=== PATIENT | female | born 1950 | race Caucasian/White ===

== ENCOUNTER 2017-11-11 20:36 | Observation (INO) ==
--- NOTE | 2017-11-11 21:43 | ED ---
HPI General Chief complaint: Weakness Stated complaint: Weakness Time Seen by Provider: 11/11/17 21:30 Source: patient and EMS Mode of arrival: EMS Limitations: no limitations History of Present Illness HPI Narrative: 67-year-old female presents to the emergency department from local urgent care by EMS for evaluation of weakness and reported heart rate of 170 noted by pulse oximetry during clinic triage. Paramedics transported patient in sinus rhythm sinus tachycardia with rate of 104 and no acute injury pattern EMS EKG. Patient here reports no chest pain no shortness of breath. Patient does report feeling some palpitations and weakness after eating some cheese its and drinking the beverage. Patient states shortly thereafter felt lightheaded and decided to be seen in the urgent care. Patient states she has history of hypertension and is prescribed losartan. Patient states she recently moved here from [place] and in July because of an abnormality on her EKG was sent to a public administration teacher by her primary care provider who did an extensive workup with a negative treadmill. Patient denies any chest pain shortness of breath referred neck jaw back shoulder arm pain. Patient denies abdominal pain. Patient states she has indigestion and feels like her stomach is gurgling and increased repetitive belching. No nausea or vomiting. No diaphoresis. No nursing. No reported upper or lower extremity numbness tingling or weakness. Patient has not yet established with a primary care provider. Complaint: generalized weakness Onset (ago): hour(s) Duration: intermittent and improved Location: generalized Migration: none Severity: moderate Quality: other (Indigestion with frequent belching) Relieving factors: none Exacerbating factors: none Associated symptoms: denies other symptoms Related Data Home Medications Medication Instructions Recorded Confirmed losartan 25 mg PO DAILY 11/11/17 11/12/17 Allergies Allergy/AdvReac Type Severity Reaction Status Date / Time No Known Allergies Allergy Verified 11/11/17 21:01 Review of Systems ROS: all other systems reviewed are negative [facility] Medical History Medical History Borderline diabetes (Acute) Hypertension (Acute) Lung cyst (Acute) Surgical History Surgical History H/O section (Acute) Social History Social History Substance History: No History of Abuse Smoking Status: Never smoker How Often Do You Have a Drink Containing Alcohol: Never Recent Travel in [place] within the Last 8 Weeks: Yes Recent Out of Country Travel within the Last 8 Weeks: No Immunization History Tetanus Immunization: Unsure Hx Influenza Vaccine This Season: No Exam Narrative Exam Narrative: GENERAL: Well-developed well-nourished pleasant female in no acute distress no respiratory distress GCS 15; patient noted to be in sinus tachycardia by wire preparation machine tender heart rate of 104-115. Low normal blood pressure SKIN: Focused skin assessment warm/dry. HEAD: Atraumatic. Normocephalic. EYES: Pupils equal and round. No scleral icterus. No injection or drainage. No conjunctival pallor. ENT: No nasal bleeding or discharge. Mucous membranes pink and moist. Airway is patent. NECK: Trachea midline. No JVD. Supple. CARDIOVASCULAR: Increased regular rate and rhythm. No murmur appreciated. RESPIRATORY: No accessory muscle use. Clear to auscultation. Breath sounds equal bilaterally. GASTROINTESTINAL: Abdomen soft, non-tender, nondistended. Hepatic and splenic margins not palpable. No guarding no rebound. MUSCULOSKELETAL: No obvious deformities. No clubbing. No cyanosis. No edema. Bilateral radial and dorsalis pedis pulses 2+ to palpation bilaterally. NEUROLOGICAL: Awake and alert. GCS 15. No obvious cranial nerve deficits. Motor grossly within normal limits. Normal speech. PSYCHIATRIC: Appropriate mood and affect; insight and judgment normal. Course Consultations Consultation #1: discussed with [facility] MD Dr Peña ---OBS Time: 02:41 Initial Documented Vital Signs Temperature 98.1 F 11/11/17 20:45 Pulse Rate 115 H 11/11/17 20:45 Respiratory Rate 20 11/11/17 20:45 Blood Pressure 126/68 11/11/17 20:45 Pulse Oximetry 99 11/11/17 20:45 Last Documented Vital Signs Temperature 98.1 F 11/11/17 20:45 Pulse Rate 75 11/12/17 01:16 Respiratory Rate 18 11/11/17 23:00 Blood Pressure 135/64 11/12/17 01:16 Pulse Oximetry 99 11/12/17 01:16 Medical Decision Making MDM Narrative Medical decision making narrative: Well-developed well-nourished pleasant 67- year-old female no acute distress no respiratory distress noted to be in sinus tachycardia by wire preparation machine tender at bedside and reportedly at urgent care just prior to arrival to the emergency department while experiencing indigestion with frequent belching was monitored to have a heart rate of 175 pulse oximetry. Patient was transported by EMS to the emergency department and during transit was in sinus tach with a rate of 100-115 but no ectopy noted. Upon arrival here patient placed on wire preparation machine tender and has remained in a sinus tachycardia 102-114 depending on activity denying any other concerns or complaints except for persistent frequent belching. Patient maintained on wire preparation machine tender with continuous pulse oximetry IV access obtained specimens collected and sent for resulting EKG ordered patient given bolus of normal saline Patient identified to have elevated d-dimer CT pulmonary angiogram ordered CT negative for pulmonary embolism or acute process mild atelectasis noted no aneurysm At 2 AM patient remains hemodynamically stable after IV fluid bolus no tachycardia Medical Screen Exam Complete: Yes Emergency Medical Condition: Yes Differential Diagnosis Differential Diagnosis: Arrhythmia, electrolyte disturbance, hypotension, dehydration, anemia, ACS, PE Medical Records Medical records reviewed: Yes I reviewed the patient's medical records. NONE Lab Data Lab results reviewed: Yes I reviewed the patient's lab results. Result diagrams: 11/11/17 21:45 11/11/17 21:45 Lab Results 11/11/17 11/11/17 11/11/17 Range/Units 21:35 21:45 21:45 CBC w Diff Slide review pending WBC 8.7 (4.0-11.0) th/mm3 RBC 4.28 (4.00-5.30) mil/mm3 Hgb 10.6 L (11.6-15.3) gm/dL Hct 33.7 L (35.0-46.0) % MCV 78.6 L (80.0-100.0) fL MCH 24.8 L (27.0-34.0) pg MCHC 31.6 L (32.0-36.0) % RDW 17.6 H (11.6-17.2) % Plt Count 398 (150-450) th/mm3 MPV 8.2 (7.0-11.0) fL Neut % (Auto) 62.1 (16.0-70.0) % Lymph % (Auto) 30.0 (9.0-44.0) % [place] % (Auto) 5.5 (0.0-8.0) % Eos % (Auto) 1.7 (0.0-4.0) % Baso % (Auto) 0.7 (0.0-2.0) % Neut # (Auto) 5.4 (1.8-7.7) th/mm3 Lymph # (Auto) 2.6 (1.0-4.8) th/mm3 [place] # (Auto) 0.5 (0.0-0.9) th/mm3 Eos # (Auto) 0.1 (0.0-0.4) th/mm3 Baso # (Auto) 0.1 (0.0-0.2) th/mm3 WBC Differential . Diff Scan Auto diff confirmed Differential Comment . Dimorphic RBCs Present H (None) Ovalocytes 1+ H (None) PT 10.7 (9.8-11.6) sec INR 1.1 Ratio D-Dimer Quant (PE/DVT) 1.37 H (0.00-0.50) mg/L FEU Sodium (136-145) meq/L Potassium (3.5-5.1) meq/L Chloride (98-107) meq/L Carbon Dioxide (21.0-32.0) meq/L Anion Gap (5-15) meq/L BUN (7-18) mg/dL Creatinine (0.50-1.00) mg/dL Estimated GFR (>89) mL/min Random Glucose (74-106) mg/dL Calcium (8.5-10.1) mg/dL Magnesium (1.5-2.5) mg/dL Total Bilirubin (0.2-1.0) mg/dL AST (15-37) U/L ALT (10-53) U/L Alkaline Phosphatase (45-117) U/L Troponin I (0.02-0.05) ng/mL Total Protein (6.4-8.2) g/dL Albumin (3.4-5.0) g/dL Lipase (73-393) U/L TSH (0.358-3.740) uIU/mL Urine Color Yellow (Yellw/Straw) Urine Clarity Clear (Clear) Urine pH 6.0 (5.0-8.5) Ur Specific [place] Less/equal 1.005 (1.002-1.035) Urine Protein Negative (Neg-Trace) mg/dL Urine Glucose (UA) Negative (Negative) mg/dL Urine Ketones Negative (Negative) mg/dL Urine Occult Blood Negative (Negative) Urine Nitrate Negative (Negative) Urine Bilirubin Negative (Negative) Urine Urobilinogen 0.2 (Less than 2) mg/dL Ur Leukocyte Esterase Negative (Negative) Urine WBC 0-5 (0-5) /hpf Ur Squamous Epith Cells 0-5 (0-5) /hpf Micro UA Comment Culture not ind Ur Microscopic Review Microscopic reviewed Urine Culture Comments Culture not ind Blood Type Blood Type Recheck Antibody Screen 11/11/17 11/11/17 Range/Units 21:45 21:45 CBC w Diff WBC (4.0-11.0) th/mm3 RBC (4.00-5.30) mil/mm3 Hgb (11.6-15.3) gm/dL Hct (35.0-46.0) % MCV (80.0-100.0) fL MCH (27.0-34.0) pg MCHC (32.0-36.0) % RDW (11.6-17.2) % Plt Count (150-450) th/mm3 MPV (7.0-11.0) fL Neut % (Auto) (16.0-70.0) % Lymph % (Auto) (9.0-44.0) % [place] % (Auto) (0.0-8.0) % Eos % (Auto) (0.0-4.0) % Baso % (Auto) (0.0-2.0) % Neut # (Auto) (1.8-7.7) th/mm3 Lymph # (Auto) (1.0-4.8) th/mm3 [place] # (Auto) (0.0-0.9) th/mm3 Eos # (Auto) (0.0-0.4) th/mm3 Baso # (Auto) (0.0-0.2) th/mm3 WBC Differential Diff Scan Differential Comment Dimorphic RBCs (None) Ovalocytes (None) PT (9.8-11.6) sec INR Ratio D-Dimer Quant (PE/DVT) (0.00-0.50) mg/L FEU Sodium 140 (136-145) meq/L Potassium 3.4 L (3.5-5.1) meq/L Chloride 104 (98-107) meq/L Carbon Dioxide 26.5 (21.0-32.0) meq/L Anion Gap 10 (5-15) meq/L BUN 22 H (7-18) mg/dL Creatinine 1.10 H (0.50-1.00) mg/dL Estimated GFR 49 L (>89) mL/min Random Glucose 144 H (74-106) mg/dL Calcium 8.6 (8.5-10.1) mg/dL Magnesium 2.3 (1.5-2.5) mg/dL Total Bilirubin 0.2 (0.2-1.0) mg/dL AST 14 L (15-37) U/L ALT 17 (10-53) U/L Alkaline Phosphatase 101 (45-117) U/L Troponin I Less than 0.02 L (0.02-0.05) ng/mL Total Protein 7.8 (6.4-8.2) g/dL Albumin 3.2 L (3.4-5.0) g/dL Lipase 110 (73-393) U/L TSH 2.120 (0.358-3.740) uIU/mL Urine Color (Yellw/Straw) Urine Clarity (Clear) Urine pH (5.0-8.5) Ur Specific [place] (1.002-1.035) Urine Protein (Neg-Trace) mg/dL Urine Glucose (UA) (Negative) mg/dL Urine Ketones (Negative) mg/dL Urine Occult Blood (Negative) Urine Nitrate (Negative) Urine Bilirubin (Negative) Urine Urobilinogen (Less than 2) mg/dL Ur Leukocyte Esterase (Negative) Urine WBC (0-5) /hpf Ur Squamous Epith Cells (0-5) /hpf Micro UA Comment Ur Microscopic Review Urine Culture Comments Blood Type A Positive Blood Type Recheck Required Antibody Screen Negative Imaging Data Radiologist's impression: Chest X-Ray 11/11/17 21:35 CONCLUSION: No acute cardiopulmonary process. Chest CTA 11/12/17 00:02 CONCLUSION: 1. No pulmonary embolus. 2. Trace atelectasis/scarring of both lung bases. No pneumonia. ECG Data EKG Prior to Arrival: Yes Attestation: I personally reviewed and interpreted this ECG as follows: Prior ECG tracings: available for review Interpretation: EKG: Sinus tachycardia rate [address] elevation or injury pattern age-indeterminate inferior PA with Q waves noted in lead III and aVF no ectopy Discharge Plan Discharge Disposition Patient Disposition: 30 Still Patient Discharge Condition Condition: Stable Discharge Details Diagnosis: Palpitations, Near syncope Physicians Team ED Provider: Alexa Wen Primary Care Provider: POOJA BLACKMON Rxs /Orders / Referrals /Forms Prescriptions: No Action losartan 25 mg Tablet 25 mg PO DAILY RF: 0 Status ED Status: With Doctor
[2017-11-11] MEDS ORDERED: Sod Chloride 0.9% Inj 1,000 ML IV.SIG SCH (21:45)
[2017-11-11 22:06] LABS: Baso # (Auto) 0.1 th/mm3 (0.0-0.2); Baso % (Auto) 0.7 % (0.0-2.0); Eos # (Auto) 0.1 th/mm3 (0.0-0.4); Eos % (Auto) 1.7 % (0.0-4.0); Hematocrit 33.7 % (35.0-46.0); Hemoglobin 10.6 gm/dL (11.6-15.3); Lymph # (Auto) 2.6 th/mm3 (1.0-4.8); Mean Corpuscular HGB Conc 31.6 % (32.0-36.0); Mean Corpuscular Hemoglobin 24.8 pg (27.0-34.0); Mean Corpuscular Volume 78.6 fL (80.0-100.0); Mean Platelet Volume 8.2 fL (7.0-11.0); Mono # (Auto) 0.5 th/mm3 (0.0-0.9); Mono % (Auto) 5.5 % (0.0-8.0); Neut # (Auto) 5.4 th/mm3 (1.8-7.7); Neut % (Auto) 62.1 % (16.0-70.0); Platelet Count 398 th/mm3 (150-450); Red Blood Count 4.28 mil/mm3 (4.00-5.30); Red Cell Distribution Width 17.6 % (11.6-17.2); White Blood Count 8.7 th/mm3 (4.0-11.0)
[2017-11-11 22:15] LABS: Chloride 104 meq/L (98-107); Potassium 3.4 meq/L (3.5-5.1); Sodium 140 meq/L (136-145)
[2017-11-11 22:18] LABS: Albumin 3.2 g/dL (3.4-5.0); Calcium 8.6 mg/dL (8.5-10.1)
[2017-11-11 22:19] LABS: Anion Gap 10 meq/L (5-15); Blood Urea Nitrogen 22 mg/dL (7-18); Carbon Dioxide 26.5 meq/L (21.0-32.0); Glucose,Random 144 mg/dL (74-106); Lipase 110 U/L (73-393); Magnesium 2.3 mg/dL (1.5-2.5)
[2017-11-11 22:21] LABS: Alanine Aminotransferase 17 U/L (10-53); Aspartate Aminotransferase 14 U/L (15-37); INR 1.1 Ratio; Prothrombin Time 10.7 sec (9.8-11.6)
[2017-11-11 22:22] LABS: Glomerular Filtration Rate 49 mL/min (>89)
[2017-11-11 22:23] LABS: Total Protein 7.8 g/dL (6.4-8.2)
[2017-11-11 22:24] LABS: Alkaline Phosphatase 101 U/L (45-117)
--- NOTE | 2017-11-11 22:25 | XR ---
EXAM DATE: 11/11/2017 10:13 PM EDT AGE/SEX: 67 years / Female INDICATIONS: Generalized weakness and dizziness. CLINICAL DATA: This is the patient's initial encounter. Patient reports that signs and symptoms have been present for 1 day and indicates a pain score of 0/10. MEDICAL/SURGICAL HISTORY: None. None. COMPARISON: No prior exams available for comparison. FINDINGS: A single AP view of the chest demonstrates the lungs to be symmetrically aerated without evidence of mass, infiltrate or effusion. The cardiomediastinal contours are unremarkable. Osseous structures a re intact. CONCLUSION: No acute cardiopulmonary process. Electronically signed by: Chip Jovel MD 11/11/2017 10:24 PM EDT
[2017-11-11 22:26] LABS: D-Dimer 1.37 mg/L FEU (0.00-0.50)
[2017-11-11 23:01] LABS: Bilirubin,Urine Negative (Negative); Clarity,Urine Clear (Clear); Color,Urine Yellow (Yellw/Straw); Glucose,Urine (UA) Negative (Negative); Leukocyte Esterase,Urine Negative (Negative); Nitrite,Urine Negative (Negative); Specific Gravity,Urine Less/Equal 1.005 (1.002-1.035); Urobilinogen,Urine 0.2 mg/dL (Less than 2)
[2017-11-11 23:05] LABS: Squamous Epithelial Cell,Urine 0-5 /hpf (0-5); WBC,Urine 0-5 /hpf (0-5)
[2017-11-12 00:46] LABS: Dimorphic RBC Present; Ovalocytes 1+
--- NOTE | 2017-11-12 01:30 | CT ---
EXAM DATE: 11/12/2017 1:18 AM EDT AGE/SEX: 67 years / Female INDICATIONS: Evaluate for embolism. Weakness. CLINICAL DATA: This is the patient's initial encounter. Patient reports that signs and symptoms have been present for 1 day and indicates a pain score of 0/10. MEDICAL/SURGICAL HISTORY: Hypertension. None. RADIATION DOSE: 12.92 CTDI (mGy) COMPARISON: No prior exams available for comparison. TECHNIQUE: Volumetric scanning was performed using a multi-row detector CT scanner during bolus infu antonio of 75 ml Omnipaque 350 (iohexol) nonionic water-soluble contrast as a single exam dose. The rica a was post processed with a variety of visualization algorithms including full volume maximum intensi ty projection and sliding thin slab reformation. Using automated exposure control and adjustment of the mA and/or kV according to patient size, radiation dose was kept as low as reasonably achievable t o obtain optimal diagnostic quality images. DICOM format image data is available electronically for review and comparison. FINDINGS: There is no pulmonary embolus. Mild atelectasis and/or scarring seen of both lung bases. Mild emphysema. No infiltrate, effusion or pneumothorax. Heart size within normal limits. Thoracic aorta is tortuous and mildly atherosclerotic. No aneurysm. A small hiatal hernia is noted. CONCLUSION: 1. No pulmonary embolus. 2. Trace atelectasis/scarring of both lung bases. No pneumonia. Electronically signed by: Chip Phillips MD 11/12/2017 1:29 AM EDT
[2017-11-12 05:24] VITALS: BP 149/79; RESP 20; TEMP 97.6; O2SAT 100
[2017-11-12 09:43] VITALS: PULSE 62
--- NOTE | 2017-11-12 09:55 | P.HP ---
History of Present Illness Service: Hospitalist Primary Care Physician: UNKNOWN Chief Complaint: Dizziness, Palpitations. History of Present Illness: Ms. David is a pleasant 67-year-old -[place] female with a history of hypertension who presented to the emergency department on 11/11/2017 due to dizziness and palpitations. During the day on 11/11/2017 patient was outside shopping around and going to different stores. Around 5:30 PM she went to a store and started eating some cheese crackers too fast. She had some water as well. Currently she started to feel dizzy. After she sat down in her car she started feeling somewhat better but developed headache. She was able to drive herself home but she again had another episode of dizziness. She then went to urgent care where she was instructed to come to the emergency department. She denies any chest pain, shortness of breath, fever or chills. She denies any changes in bowel or bladder habits. Past medical history: Hypertension Past surgical history: , lung cyst removal 20 years ago. Social history: Denies using tobacco or alcohol Family history: Mother with stroke, dad -congestive heart failure, brother had myocardial infarction - Diagnosis (1) Near syncope Review of Systems All other systems reviewed negative except as stated in HPI PMFSH - History History Provided By: Patient - Medical History Medical History: Medical History (Last Reviewed 11/11/17 @ 21:40 by Alexa Wen MD) Borderline diabetes Hypertension Lung cyst - Surgical History Surgical History: Surgical History (Last Reviewed 11/11/17 @ 21:40 by Alexa Wen MD) H/O section - Tobacco History Second Hand Smoke Exposure: No Smoking Status: Never smoker - Alcohol History How Often Do You Have a Drink Containing Alcohol: Never - Substance Use History Substance History: No History of Abuse - Travel History Recent Travel in the USA Within the Last 8 Weeks: No Recent Travel Out of the Country Within the Last 8 Weeks: No - Immunization History Tetanus Immunization: Unsure Hx Influenza Vaccine This Season: No Medications and Allergies Active Medications: Active Medications Sodium Chloride (Ns Inj) 1,000 mls @ 0 mls/hr IV.SIG BOLUS JESSICA Last Infusion: 11/11/17 23:15 Dose: Infused Sodium Chloride (Ns Flush) 2 ml IV.FLUSH BID JESSICA Last Admin: 11/12/17 09:51 Dose: 2 ml Sodium Chloride (Ns Flush) 2 ml IV.FLUSH PRN PRN PRN Reason: FLUSH AFTER USING IV ACCESS Allergies Allergy/AdvReac Type Severity Reaction Status Date / Time No Known Allergies Allergy Verified 11/11/17 21:01 Home Medications Medication Instructions Recorded Confirmed Type losartan 25 mg PO DAILY 11/11/17 11/12/17 History Exam Vital signs: Vital Signs 11/11/17 20:45 11/11/17 21:33 11/11/17 22:00 Temperature 98.1 F Pulse Rate 115 H 95 H 102 H Respiratory Rate 20 18 18 Blood Pressure 126/68 103/63 118/58 L Pulse Oximetry 99 98 97 11/11/17 22:30 11/11/17 22:53 11/11/17 23:00 Temperature Pulse Rate 90 88 Respiratory Rate 18 Blood Pressure 151/74 H 133/67 Pulse Oximetry 100 11/12/17 01:16 11/12/17 04:30 11/12/17 04:39 Temperature 97.6 F Pulse Rate 75 72 75 Respiratory Rate 20 Blood Pressure 135/64 149/79 H Pulse Oximetry 99 100 11/12/17 08:00 Temperature Pulse Rate 62 Respiratory Rate Blood Pressure Pulse Oximetry Intake & Output 11/11/17 11/12/17 11/12/17 18:59 06:59 18:59 Intake Total 1000 / 1000 Balance 1000 / 1000 Weight 92.9 kg Intake: IV 1000 / 1000 NS Inj 1,000 ML @ Wide Open IV. 1000 / 1000 SIG BOLUS JESSICA Rx#:[id number] Other: # Voids 1 Date of Last Bowel Movement 11/11/17 Weight On Admission 92.3 kg Narrative: GENERAL: This is a well-nourished, well-developed patient, in no apparent distress. SKIN: No rashes, ecchymoses or lesions. Warm and dry. HEAD: Atraumatic. Normocephalic. No temporal or scalp tenderness. EYES: Pupils equal round and reactive. No injection or drainage. ENT: Nose without bleeding, purulent drainage or septal hematoma. Airway patent. NECK: Trachea midline. No lymphadenopathy. Supple, nontender, no meningeal signs. CARDIOVASCULAR: Regular rate and rhythm without murmurs, gallops, or rubs. No JVD. RESPIRATORY: Clear to auscultation. Breath sounds equal bilaterally. No wheezes , rales, or rhonchi. GASTROINTESTINAL: Abdomen soft, non-tender, nondistended. No guarding. MUSCULOSKELETAL: Extremities without clubbing, cyanosis, or edema. NEUROLOGICAL: Awake and alert. Cranial nerves II through XII intact. No focal neurological deficits. Normal speech. Results - Labs CBC & Chem 7: 11/11/17 21:45 11/11/17 21:45 Labs: Laboratory Results - last 24 hr 11/11/17 11/11/17 11/11/17 21:35 21:45 21:45 CBC w Diff Slide review pending WBC 8.7 RBC 4.28 Hgb 10.6 L Hct 33.7 L MCV 78.6 L MCH 24.8 L MCHC 31.6 L RDW 17.6 H Plt Count 398 MPV 8.2 Neut % (Auto) 62.1 Lymph % (Auto) 30.0 [place] % (Auto) 5.5 Eos % (Auto) 1.7 Baso % (Auto) 0.7 Neut # (Auto) 5.4 Lymph # (Auto) 2.6 [place] # (Auto) 0.5 Eos # (Auto) 0.1 Baso # (Auto) 0.1 WBC Differential . Diff Scan Auto diff confirmed Differential Comment . Dimorphic RBCs Present H Ovalocytes 1+ H PT 10.7 INR 1.1 D-Dimer Quant (PE/DVT) 1.37 H Sodium Potassium Chloride Carbon Dioxide Anion Gap BUN Creatinine Estimated GFR Random Glucose Calcium Magnesium Total Bilirubin AST ALT Alkaline Phosphatase Troponin I Total Protein Albumin Lipase TSH Urine Color Yellow Urine Clarity Clear Urine pH 6.0 Ur Specific [place] Less/equal 1.005 Urine Protein Negative Urine Glucose (UA) Negative Urine Ketones Negative Urine Occult Blood Negative Urine Nitrate Negative Urine Bilirubin Negative Urine Urobilinogen 0.2 Ur Leukocyte Esterase Negative Urine WBC 0-5 Ur Squamous Epith Cells 0-5 Micro UA Comment Culture not ind Ur Microscopic Review Microscopic reviewed Urine Culture Comments Culture not ind Blood Type Blood Type Recheck Antibody Screen 11/11/17 11/11/17 21:45 21:45 CBC w Diff WBC RBC Hgb Hct MCV MCH MCHC RDW Plt Count MPV Neut % (Auto) Lymph % (Auto) [place] % (Auto) Eos % (Auto) Baso % (Auto) Neut # (Auto) Lymph # (Auto) [place] # (Auto) Eos # (Auto) Baso # (Auto) WBC Differential Diff Scan Differential Comment Dimorphic RBCs Ovalocytes PT INR D-Dimer Quant (PE/DVT) Sodium 140 Potassium 3.4 L Chloride 104 Carbon Dioxide 26.5 Anion Gap 10 BUN 22 H Creatinine 1.10 H Estimated GFR 49 L Random Glucose 144 H Calcium 8.6 Magnesium 2.3 Total Bilirubin 0.2 AST 14 L ALT 17 Alkaline Phosphatase 101 Troponin I Less than 0.02 L Total Protein 7.8 Albumin 3.2 L Lipase 110 TSH 2.120 Urine Color Urine Clarity Urine pH Ur Specific [place] Urine Protein Urine Glucose (UA) Urine Ketones Urine Occult Blood Urine Nitrate Urine Bilirubin Urine Urobilinogen Ur Leukocyte Esterase Urine WBC Ur Squamous Epith Cells Micro UA Comment Ur Microscopic Review Urine Culture Comments Blood Type A Positive Blood Type Recheck Required Antibody Screen Negative - Imaging Impressions Chest X-Ray 11/11/17 21:35 CONCLUSION: No acute cardiopulmonary process. Chest CTA 11/12/17 00:02 CONCLUSION: 1. No pulmonary embolus. 2. Trace atelectasis/scarring of both lung bases. No pneumonia. Caprini VTE Risk Assessment Caprini VTE Risk Assessment: No/Low Risk (score <= 1) Caprini Risk Assessment Model: Point Value = 1 Point Value = 2 Point Value = 3 Point Value = 5 Age 41-60 Minor surgery BMI > 25 kg/m2 Swollen legs Varicose veins or History of unexplained or recurrent spontaneous Oral contraceptives or hormone replacement Sepsis (< 1 month) Serious lung disease, including pneumonia (< 1 month) Abnormal pulmonary function Acute myocardial infarction Congestive heart failure (< 1 month) History of inflammatory bowel disease Medical patient at bed rest Age 61-74 Arthroscopic surgery Major open surgery (> 45 min) Laparoscopic surgery (> 45 min) Malignancy Confined to bed (> 72 hours) Immobilizing plaster cast Central venous access Age >= 75 History of VTE Family history of VTE Factor V Leiden Prothrombin [id number] Lupus anticoagulant Anticardiolipin antibodies Elevated serum homocysteine Heparin-induced thrombocytopenia Other congenital or acquired thrombophilia Stroke (< 1 month) Elective arthroplasty Hip, pelvis, or leg fracture Acute spinal cord injury (< 1 month) Prophylaxis Regimen: Total Risk Factor Score Risk Level Prophylaxis Regimen 0-1 Low Early ambulation 2 Moderate Order ONE of the following: *Sequential Compression Device (SCD) *Heparin 5000 units SQ BID 3-4 Higher Order ONE of the following medications: *Heparin 5000 units SQ TID *Enoxaparin/Lovenox 40 mg SQ daily (WT < 150 kg, CrCl > 30 mL/min) *Enoxaparin/Lovenox 30 mg SQ daily (WT < 150 kg, CrCl > 10-29 mL/min) *Enoxaparin/Lovenox 30 mg SQ BID (WT < 150 kg, CrCl > 30 mL/min) AND/OR *Sequential Compression Device (SCD) 5 or more Highest Order ONE of the following medications: *Heparin 5000 units SQ TID (Preferred with Epidurals) *Enoxaparin/Lovenox 40 mg SQ daily (WT < 150 kg, CrCl > 30 mL/min) *Enoxaparin/Lovenox 30 mg SQ daily (WT < 150 kg, CrCl > 10-29 mL/min) *Enoxaparin/Lovenox 30 mg SQ BID (WT < 150 kg, CrCl > 30 mL/min) AND *Sequential Compression Device (SCD) Assessment and Plan - Assessment (1) Near syncope Code(s): R55 - Syncope and collapse Status: Acute - Plan Ms. David is a pleasant 67-year-old -[place] female with a history of hypertension who presented to the emergency department due to 1 day duration of dizziness, palpitation. Near-syncope Probable supraventricular tachycardia -No further symptoms. Patient is encouraged to keep herself hydrated and stay away from heat as much as possible. -If similar symptoms occur again, patient is advised to discuss with her primary care physician and possible cardiology evaluation in the outpatient setting. -EKG reviewed, heart rate 100. No QT prolongation. Currently heart rate in the 60s and 70s. -TSH within normal limit. Hypertension -patient takes losartan 25 mg daily. She has been on this medication for a long time. Continue losartan. Full code. Ambulation. Discharge patient to home Condition on discharge: Improved Cardiac diet as tolerated Ad Jesika activity Rx written: No new prescriptions. Patient is again encouraged to keep herself hydrated and stay away from heat. Follow-up with primary care physician within 1-2 weeks.
--- NOTE | 2017-11-12 10:47 | ECG ---
Date Performed: 11/11/2017 Time Performed: 21:43:12 PTAGE: 67 years EKG: SINUS TACHYCARDIA POSSIBLE LEFT ATRIAL ENLARGEMENT INFERIOR MYOCARDIAL INFARCTION ABNORMAL ECG NO PREVIOUS TRACING DOCTOR: Antony Khanna Interpretating Date/Time 11/12/2017 10:44:11
--- NOTE | 2017-11-12 11:50 | ECHRPT ---
Indication: ATRIAL FIB CONCLUSIONS Normal left ventricular size and wall thickness. The left ventricular systolic function is normal wi th an estimated ejection fraction in the range of 60-65%. Left ventricular diastolic function parameters a re normal. Trace mitral valve regurgitation. There is mild tricuspid valve regurgitation. The estimated pulmonary arterial pressure is 32.1 mmHg. BP: / HR: Rhythm: MEASUREMENTS (Male / Female) Normal Values Technical Quality: 2D ECHO LV Diastolic Diameter PLAX 4.0 cm 4.2 - 5.9 / 3.9 - 5.3 cm LV Systolic Diameter PLAX 2.8 cm IVS Diastolic Thickness 1.2 cm 0.6 - 1.0 / 0.6 - 0.9 cm LVPW Diastolic Thickness 1.2 cm 0.6 - 1.0 / 0.6 - 0.9 cm LV Relative Wall Thickness 0.6 RV Internal Dim ED PLAX 3.0 cm LVOT Diameter 1.7 cm LA Systolic Diameter LX 3.0 cm 3.0 - 4.0 / 2.7 - 3.8 cm LV Ejection Fraction MOD 4C 60.4 % LV Ejection Fraction 4C AL 61.3 % M-MODE Aortic Root Diameter MM 1.9 cm LA Systolic Diameter MM 3.3 cm LA Ao Ratio MM 1.7 AV Cusp Separation MM 1.8 cm DOPPLER AV Peak Velocity 122.0 cm/s AV Peak Gradient 6.0 mmHg LVOT Peak Velocity 84.4 cm/s LVOT Peak Gradient 2.8 mmHg AV Area Cont Eq pk 1.6 cm MV Area PHT 3.4 cm Mitral E Point Velocity 70.1 cm/s Mitral A Point Velocity 75.0 cm/s Mitral E to A Ratio 0.9 LV E' Lateral Velocity 7.6 cm/s Mitral E to LV E' Lateral Ratio 9.2 LV E' Septal Velocity 6.0 cm/s Mitral E to LV E' Septal Ratio 11.6 TR Peak Velocity 235.0 cm/s TR Peak Gradient 22.1 mmHg Right Atrial Pressure 10.0 mmHg Pulmonary Artery Systolic Pressu 32.1 mmHg Right Ventricular Systolic Press 32.1 mmHg PV Peak Velocity 80.1 cm/s PV Peak Gradient 2.6 mmHg FINDINGS LEFT VENTRICLE Normal left ventricular size and wall thickness. The left ventricular systolic function is normal wi th an estimated ejection fraction in the range of 60-65%. Left ventricular diastolic function parameters a re normal. RIGHT VENTRICLE Normal right ventricular size and systolic function. LEFT ATRIUM The left atrial size is normal. RIGHT ATRIUM The right atrial size is normal. ATRIAL SEPTUM Normal atrial septal thickness without atrial level shunting by limited color doppler interrogation. AORTA The aortic root and proximal ascending aorta are normal in size on limited imaging. MITRAL VALVE Structurally normal mitral valve. Trace mitral valve regurgitation. AORTIC VALVE Trileaflet aortic valve. No aortic valve stenosis or regurgitation. TRICUSPID VALVE Structurally normal tricuspid valve. There is mild tricuspid valve regurgitation. The estimated pulmonary arterial pressure is 32.1 mmHg. PULMONARY VALVE No pulmonary valve regurgitation or stenosis. VESSELS The inferior vena cava is normal in size. PERICARDIUM No pericardial effusion. George Gamble MD, FACC (Electronically Signed) Final Date:12 November 2017 11:49
== END 2017-11-12 10:25 | disposition home or self-care (01) ==
LOC: PHED 20:36 → PHEDA 20:36 → PH3 11-12 04:20
PROVIDERS: ADMIT Hospitalist; ATTEND Hospitalist
DX: R55 Syncope and collapse; Z82.3 Family history of stroke; J98.11 Atelectasis; Z82.49 Family history of ischemic heart disease and other diseases of the circulatory system; R73.03 Prediabetes; R51 Headache; Z79.899 Other long term (current) drug therapy; I10 Essential (primary) hypertension; J98.4 Other disorders of lung; I47.1 Supraventricular tachycardia